=== PATIENT | female | born 1940 | race Caucasian/White ===

== ENCOUNTER → 2017-02-16 | Outpatient (CLI) | payer OTHER, MEDICARE ==
[~2017-02-16] MED LIST: ASPERDRINK81 MG PO; ASPIR 8181 M1 PO; AVAPRO150 MG PO; CALCIUM 600 +1 EAC1 PO; CALCIUM 600 WI1 EAC1 PO; CENTRUM SILV1 TABLET PO; CORGARD20 MG PO; ESTRACE0.5 MG PO; ESTRACE1 MG PO; GLUCOSAMINE R1000 MG PO; GLUCOSAMINE S1000 M2 PO; HYDROCHLOROTHIA25 MG PO; IRBESARTAN PO; MEDROXYPROGEST2.5 MG PO; MEGA RED PO; PREDNISONE20 MG PO; PROTONIX40 MG PO; PROVERA CYCRIN PO; SUCRALFATE1 GM PO; SYNTHROID50 MCG PO; VITAMIN B6100 MG PO
== END | disposition home or self-care (01) ==
DX: R13.10 Dysphagia, unspecified (principal); K21.9 Gastro-esophageal reflux disease without esophagitis
CPT/HCPCS: 92611 GN; G8996 GN; G8997 GN; G8998 GN